=== PATIENT | female | born 1945 | race Caucasian/White ===

== ENCOUNTER 2025-08-23 12:10 | Emergency (ER) | payer MEDICARE ==
[2025-08-23 12:35] LABS: BASOPHILS ABSOLUTE AUTO 0.02 K/uL (0.00-0.20); BASOPHILS PERCENT AUTO 0.3 % (0.0-2.0); EOSINOPHILS ABSOLUTE AUTO 0.04 K/uL (0.00-0.50); EOSINOPHILS PERCENT AUTO 0.6 % (0.0-5.0); IMMATURE GRAN ABSOLUTE AUTO 0.02 10^3/uL (0.00-0.04); IMMATURE GRAN PERCENT AUTO 0.3 % (0.0-0.4); LYMPHOCYTES ABSOLUTE AUTO 0.67 K/uL (0.50-3.50); LYMPHOCYTES PERCENT AUTO 10.3 % (10.0-50.0); MONOCYTES ABSOLUTE AUTO 0.39 K/uL (0.00-1.00); MONOCYTES PERCENT AUTO 6.0 % (2.0-14.0); NEUTROPHILS ABSOLUTE AUTO 5.37 K/uL (1.40-7.00); NEUTROPHILS PERCENT AUTO 82.5 % (45.0-80.0); PLATELET COUNT,PLT 252 K/uL (150-350); RED BLOOD CELL COUNT 4.59 M/uL (3.77-5.09); RED CELL DISTRIBUTION WIDTH 17.8 % (11.2-14.1); WHITE BLOOD CELL COUNT,WBC 6.5 K/uL (4.0-10.2)
[2025-08-23 13:04] LABS: ALANINE AMINOTRANSFERASE,ALT 168.0 U/L (12-78); ASPARTATE AMNIOTRANSFERASE,AST 131.0 U/L (15-37); BILIRUBIN TOTAL 1.0 mg/dL (0.2-1.0); BLOOD UREA NITROGEN,BUN 19.0 mg/dL (7-18); CARBON DIOXIDE,CO2 27.6 mmol/L (21.0-32.0); CHLORIDE,CL 109.0 mmol/L (98-107); CREATININE 0.9 mg/dL (0.51-1.17); EST CRCL DRUG DOSING (CG) 36.99 mL/min; GLUCOSE RANDOM 86.0 mg/dL (70-99); POTASSIUM,K 4.2 mmol/L (3.5-5.1); PROTEIN TOTAL,TP 6.3 g/dL (6.4-8.2); SODIUM,NA 143.0 mmol/L (136-145); TSH ULTRASENSITIVE 1.395 mIU/mL (0.358-3.740)
[2025-08-23 13:05] LABS: ESTIMATED GFR 64.0 mL/min (>=60)
[2025-08-23 13:09] LABS: INR 3.3 (0.9-1.1); PTT,PARTIAL THROMBOPLSTIN TIME 44.7 SEC (23.8-34.4)
[2025-08-23 13:35] LABS: APPEARANCE,URINE SLIGHTLY CLOUDY; GLUCOSE,URINE NEGATIVE (NEGATIVE); OCCULT BLOOD,URINE NEGATIVE (NEGATIVE)
[2025-08-23 13:46] LABS: EPITHELIAL CELLS,URINE MANY /LPF; SQUAMOUS EPITHELIAL CELLS,UR MANY /HPF (NOT SEEN)
[2025-08-23] MEDS: Lactated Ringers 1,000 ML IV ONE (14:04)
[2025-08-23] MEDS ORDERED: Sodium Chloride 0.9% 10 ML Syringe FLUSH PRN (16:27)
== END 2025-08-23 15:30 ==
LOC: SUPCPDRO 12:10 → LL.ED 12:10
DX: N39.0 Urinary tract infection, site not specified (principal); Z79.899 Other long term (current) drug therapy; Z79.01 Long term (current) use of anticoagulants; Z88.8 Allergy status to other drugs, medicaments and biological substances; Z88.0 Allergy status to penicillin; Z91.041 Radiographic dye allergy status; Z91.013 Allergy to seafood
CPT/HCPCS: 36415; 71045; 80053; 81001; 82550; 83735; 84443; 85025; 85610; 85730; 86140; 96365; 99284; 99285; C1758; J0696; J7120